=== PATIENT | male | born 1960 | race Caucasian/White ===

== ENCOUNTER → 2017-06-16 | Outpatient (CLI) | payer BC ==
--- NOTE | 2017-06-16 23:14 | MR ---
EXAMINATION TYPE: MR knee LT wo con DATE OF EXAM: 06/16/2017 COMPARISON: NONE HISTORY: Left Knee pain with swelling and locking x4 years TECHNIQUE: Multiplanar, multisequence imaging of the left knee is performed without IV contrast. FINDINGS: There is small knee joint effusion. There is a small linear area of increased signal horizontally in the posterior horn of the medial meniscus. The other menisci appear intact. The anterior and posterio r cruciate ligaments appear intact. There is a 1.5 x 0.5 cm area of increased signal in the subchondr al anterior lateral femoral condyle consistent with a bone bruise and degenerative cyst formation. Th ere is minor spurring of the femoral and tibial condyles. The collateral ligaments are intact. IMPRESSION: No evidence of ligamentous tear. Small horizontal tear of the posterior horn of the medial meniscus. Joint effusion. Small degenerative cyst formation and bone bruise involving the lateral femoral condyle.
== END | disposition home or self-care (01) ==
LOC: RADMRIMAIN 20:02
PROVIDERS: ATTEND Physician Assistant Medical
DX: S83.242A Other tear of medial meniscus, current injury, left knee, initial encounter (principal); S80.02XA Contusion of left knee, initial encounter; M85.662 Other cyst of bone, left lower leg

== ENCOUNTER → 2017-11-30 | Outpatient (CLI) | payer BC ==
--- NOTE | 2017-11-30 15:52 | CONS ---
CONSULTATION DATE OF SERVICE: 11/30/2017 57-year-old gentleman has been evaluated in the [facility] for possible obstructive sleep apnea-hypopnea syndrome. HISTORY OF PRESENT ILLNESS/SLEEP-WAKE EVALUATION: Patient usual sleep schedule on working days from around 9 or 10 p.m. until 3:30 a.m., on weekend until 6 or 7 or 7:30 a.m. Sometimes he has problem with falling asleep, has TV set in bedroom. He prefers to sleep on the side position. According to his he snores. [place] Sleepiness Scale is 4. PAST MEDICAL HISTORY: Positive for hypertension, acid reflux, peptic ulcer disease. PAST SURGICAL HISTORY: Surgery for hiatal hernia. MEDICATIONS: Prilosec, Cozaar, vitamins. SOCIAL HISTORY: Negative for smoking. Alcohol consumption rarely. FAMILY HISTORY: Hypertension, heart problems, arthritis, emphysema, cancer, acid reflux, ulcers, diabetes. REVIEW OF SYSTEMS: Sometimes tiredness during the day. PHYSICAL EXAM: GENERAL gentleman without distress. VITAL SIGNS BP 138/99, HR 90, RR 16, height 5 feet 3-1/4 inches, weight 164.8, BMI 28.8, temperature 97.9, oxygen saturation on room air 95%. HEENT PERRLA, EOMI, evaluation of oropharynx showed low position of soft palate. Restriction of nasal breathing, possibly nasal septum deviation. NECK Supple, no JVD. Thyroid is not palpable. LUNGS Clear to percussion and to auscultation. Good air exchange. No wheezing or rhonchi. HEART S1, S2 regular. No murmurs, gallops, or rubs. ABDOMEN Slightly obese. Soft and nontender. Bowel sounds are present. No organomegaly appreciated. EXTREMITIES No clubbing or cyanosis. 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 Cranial nerves 2 to 7 intact. There is no fasciculation or atrophy. noted. No focal deficits observed. IMPRESSION: 1. Snoring, low position of soft palate, restriction of nasal breathing, obstructive sleep apnea-hypopnea syndrome. 2. Hypertension. 3. Acid reflux. 4. Overweight. 5. Status post treatment of hiatal hernia. 6. History of peptic ulcer disease. 7. Restriction of nasal breathing, possible nasal septum deviation. PLAN: 1. Home sleep apnea test for evaluation of patient's breathing during the sleep. 2. Losing weight. 3. Following plan after reviewing results to home sleep test. 4. No driving if feeling sleepiness. 5. Sleep hygiene with regular time bed for at least 8 hours. Thank you very much for referring the patient for consultation. Sincerely, Epifanio Herrera MD, PhD, FAASM Diplomat of [place] [employer] [place] [employer]rick [employer] [facility] [place] MMODL / MARCUSN: [id number] /
== END | disposition home or self-care (01) ==
LOC: SLEEP 13:53
PROVIDERS: ATTEND Internal Medicine
DX: G47.33 Obstructive sleep apnea (adult) (pediatric) (principal); I10 Essential (primary) hypertension; K21.9 Gastro-esophageal reflux disease without esophagitis; E66.3 Overweight; M27.8 Other specified diseases of jaws; R06.89 Other abnormalities of breathing; Z87.11 Personal history of peptic ulcer disease; Z98.890 Other specified postprocedural states; Z79.899 Other long term (current) drug therapy; Z68.28 Body mass index [BMI] 28.0-28.9, adult
CPT/HCPCS: 99211

== ENCOUNTER → 2019-05-28 | Day surgery (SDC) | payer BC ==
[2019-05-24 18:30] VITALS: BMI 27.4
[~2019-05-28] MED LIST: ALPRAZolam 0.25 MG TAB PO PRN; ALPRAZolam 0.5 MG TAB PO PRN; ASPIRIN 325 MG TAB PO STA; ATORVASTATIN 80 MG TAB PO STA; DIGOXIN 250 MCG TAB PO SCH; IOPAMIDOL-370 125ML BTL INJ ONE; LIDOCAINE 1% INJ 10MG/ML (20 ML MDV) SQ ONE; MIDAZOLAM 2 MG/2 ML VIAL IV ONE; NITROGLYCERIN SL TABS 0.4 MG TAB SUBLINGUAL PRN; RX INFO: IV CONTRAST WAS GIVEN 1 EACH MISC MISCELLANE PRN; SODIUM CHLORIDE 0.9% 1,000 ML IV SCH; SODIUM CHLORIDE 0.9% 1,000 ML in EMPTY BAG 1 BAG IV ONE; SPIRONOLACTONE 25 MG TAB PO SCH; fentaNYL (PF) 50 MCG/ML 2 ML AMP IV ONE; fentaNYL (PF) 50 MCG/ML 2 ML AMP ONE
[2019-05-28 07:00] VITALS: RESP 18; TEMP 97.8
[2019-05-28 07:03] LABS: Basophils # (A) 0.1 k/uL (0-0.2); Basophils % (A) 1 %; Eosinophils # (A) 0.2 k/uL (0-0.7); Eosinophils % (A) 2 %; HGB 15.6 gm/dL (13.0-17.5); Lymphocytes # (A) 2.7 k/uL (1.0-4.8); Lymphocytes % (A) 32 %; MCH 30.2 pg (25.0-35.0); MCHC 33.9 g/dL (31.0-37.0); MCV 89.1 fL (80.0-100.0); Mean Platelet Volume 6.6; Monocytes # (A) 0.4 k/uL (0-1.0); Monocytes % (A) 5 %; Neutrophils % (A) 59 %; Platelet Count 223 k/uL (150-450); RBC 5.16 m/uL (4.30-5.90); WBC 8.4 k/uL (3.8-10.6)
--- NOTE | 2019-05-28 09:21 | CC ---
CARDIAC CATHETERIZATION REPORT INDICATION: Dilated cardiomyopathy with severe LV dysfunction. PROCEDURE NOTE: After obtaining informed consent, left heart catheterization and coronary angiogram were performed via the right femoral artery using standard Bear catheters. The patient tolerated the procedure well without any obvious immediate complications. A femoral angiogram was performed and Angio-Seal was deployed for hemostasis. Patient received moderate conscious sedation. Total sedation time was 19 minutes. FINDINGS: 1. HEMODYNAMICS: Left ventricular end-diastolic pressure is 24 mm. 2. LEFT VENTRICULOGRAM: Left ventriculogram is performed in RUSSELL position shows severely dilated left ventricle with diffuse global hypokinesis and severe LV systolic dysfunction with an ejection fraction of 20%. There is 1 to 2+ mitral regurgitation noted. 3. ANGIOGRAPHIC DATA: Left Main Coronary Artery: Left main coronary artery is a normal-sized vessel and is free of stenosis. Divides into left anterior descending coronary artery and circumflex coronary artery. LAD and its branches, circumflex coronary artery and its branches are free of significant stenosis. Right coronary artery is a large dominant vessel and is free of significant disease. CONCLUSIONS: 1. Dilated cardiomyopathy with severe left ventricular systolic dysfunction. 2. Normal coronary arteries. PLAN: The patient will be treated with AYDEN inhibitors, beta blockers. His blood pressure tolerating, I will add Aldactone. I will see when he first had his initial testing and we need to document that the LV function remains diminished in spite of optimal medical therapy in which event he will need a prophylactic AICD and referral to transplant center referral for evaluation for cardiac transplant. MMODL / IJN: [id number] /
--- NOTE | 2019-05-28 09:27 | LTR ---
May 28, 2019 Re: Giorgi Yan Dear Ceci: I performed cardiac catheterization on Giorgi Yan. A detailed catheterization note is enclosed for your records. In brief, cardiac catheterization revealed normal coronaries and dilated cardiomyopathy with severe LV systolic dysfunction. The patient will be treated with optimal medical therapy and will undergo evaluation for prophylactic AICD and referral for cardiac transplant center. Thank you for giving me the privilege to participate in the care of this pleasant gentleman. Sincerely, MD LEXUS Downs / SHANIQUA: [id number] /
[2019-05-28 12:32] VITALS: PULSE 102
[2019-05-28 13:29] VITALS: BP 116/80
== END ==
LOC: CATHCVL 05:59
PROVIDERS: ATTEND Internal Medicine Cardiovascular Disease
DX: I42.0 Dilated cardiomyopathy (principal); I34.0 Nonrheumatic mitral (valve) insufficiency; R94.31 Abnormal electrocardiogram [ECG] [EKG]; I10 Essential (primary) hypertension; Z79.899 Other long term (current) drug therapy; Z82.49 Family history of ischemic heart disease and other diseases of the circulatory system
CPT/HCPCS: 93458; 85025; C1760; C1894; C1769; J2250; J2001; J3010; Q9967

== ENCOUNTER 2020-06-04 09:51 | Day surgery (SDC) | payer BC ==
[2020-06-02 14:29] VITALS: BMI 27.4
[~2020-06-04 09:51] MED LIST changes: -ALPRAZolam 0.25 MG TAB PO PRN; -ALPRAZolam 0.5 MG TAB PO PRN; -ASPIRIN 325 MG TAB PO STA; -ATORVASTATIN 80 MG TAB PO STA; -DIGOXIN 250 MCG TAB PO SCH; -IOPAMIDOL-370 125ML BTL INJ ONE; +LACTATED RINGERS 1,000 ML IV SCH; -LIDOCAINE 1% INJ 10MG/ML (20 ML MDV) SQ ONE; -MIDAZOLAM 2 MG/2 ML VIAL IV ONE; -NITROGLYCERIN SL TABS 0.4 MG TAB SUBLINGUAL PRN; -RX INFO: IV CONTRAST WAS GIVEN 1 EACH MISC MISCELLANE PRN; -SODIUM CHLORIDE 0.9% 1,000 ML IV SCH; -SODIUM CHLORIDE 0.9% 1,000 ML in EMPTY BAG 1 BAG IV ONE; -SPIRONOLACTONE 25 MG TAB PO SCH; -fentaNYL (PF) 50 MCG/ML 2 ML AMP IV ONE; -fentaNYL (PF) 50 MCG/ML 2 ML AMP ONE
[2020-06-04 10:37] VITALS: TEMP 97.7
--- NOTE | 2020-06-04 10:53 | P.GSHP ---
History of Present Illness H&P Date: 06/04/20 Chief Complaint: GERD, screening colonoscopy This a 60-year-old male who presents today for EGD and colonoscopy. Patient issues GERD. He is also being scheduled for screening colonoscopy today. Past Medical History Past Medical History: GERD/Reflux, GI Bleed, Hearing Disorder / Deafness, Hyperlipidemia, Hypertension, Musculoskeletal Disorder, Osteoarthritis (OA) Additional Past Medical History / Comment(s): Hx neck injury, pain in neck/shoulders/arm. Lt knee pain. Hx bleeding stomach ulcer 2012. Pos "palpitations, Lt ventricle regurgitates." Tinnitus. History of Any Multi-Drug Resistant Organisms: None Reported Past Surgical History: AICD, Heart Catheterization, Hernia Repair Additional Past Surgical History / Comment(s): Hiatal Hernia repair. Colonoscopies, EGD Past Anesthesia/Blood Transfusion Reactions: Motion Sickness Additional Past Anesthesia/Blood Transfusion Reaction / Comment(s): Past motion sickness. Type of Cardiac Device: AICD Device Placement Date:: 09/2019-[facility] Smoking Status: Never smoker - Past Family History Father Family Medical History: Cancer Medications and Allergies Home Medications Medication Instructions Recorded Confirmed Type Acetaminophen [Tylenol Extra 500 - 1,000 mg PO Q6H PRN 05/24/19 06/02/20 History Strength] Mjvicld-Asya-Oybm [id number] 1 - 2 each PO Q6HR PRN 05/24/19 06/02/20 History [Excedrin] Atorvastatin [Lipitor] 10 mg PO DAILY 05/24/19 06/02/20 History Losartan Potassium [Cozaar] 100 mg PO DAILY 05/24/19 06/02/20 History Metoprolol Succinate (ER) [Toprol 25 mg PO DAILY 05/24/19 06/02/20 History Xl] Multivit-Minerals/Folic Acid 150 mcg PO DAILY 05/24/19 06/02/20 History [Centrum Multigummies] Omeprazole [PriLOSEC] 20 mg PO AC-BRKFST 05/24/19 06/02/20 History Allergies Allergy/AdvReac Type Severity Reaction Status Date / Time No Known Allergies Allergy Verified 06/04/20 10:25 Surgical - Exam Vital Signs Temp Pulse Resp BP Pulse Ox 97.7 F 100 17 141/92 97 06/04/20 10:33 06/04/20 10:33 06/04/20 10:33 06/04/20 10:33 06/04/20 10:33 - General well developed, well nourished, no distress - Eyes PERRL - ENT normal pinna - Neck no masses - Respiratory normal expansion - Cardiovascular Rhythm: regular - Abdomen Abdomen: soft, non tender Assessment and Plan Assessment: GERD. We'll perform EGD. We'll also perform screening colonoscopy.
[2020-06-04] MEDS ORDERED: PROPOFOL 10 MG/ML 20 ML VIAL IV ONE (10:54)
[2020-06-04] MEDS ORDERED: fentaNYL (PF) 50 MCG/ML 2 ML AMP ONE (10:54)
[2020-06-04] MEDS ORDERED: MIDAZOLAM 2 MG/2 ML VIAL ONE (10:54)
[2020-06-04] MEDS ORDERED: LIDOCAINE 1% INJ 10MG/ML (20 ML MDV) ONE (10:54)
--- NOTE | 2020-06-04 11:11 | P.OP ---
Date of Procedure: 06/04/20 Preoperative Diagnosis: GERD Screening colonoscopy Postoperative Diagnosis: Antral gastritis Diverticulosis Procedure(s) Performed: EGD Colonoscopy Anesthesia: MAC Surgeon: Eleuterio Carranza Pathology: other (Antrum,) Condition: stable Disposition: PACU Description of Procedure: The patient's placed on the endoscopy table in the lateral position. He received IV sedation. The gastroscope placed oropharynx passed in the esophagus and stomach. Scope some placed through the pylorus. The first and second portion of the duodenum appeared normal. Scope summer back the antrum this was mildly inflamed. A biopsies performed. Scope was unretroflexed and remainder stomach appeared normal. There is no significant hiatal hernia. The GE junction was at 40 cm. The distal esophagus. Normal. The proximal esophagus. Normal. Scope was withdrawn for patient. Next digital rectal exam was performed which revealed no ebonized. The flexible colonoscope was then placed patient anus passed throughout the entire colon. The cecal valve sutures. The cecum, ascending and transverse colon appeared normal. In the descending; there is mild diverticular changes. The scope was then brought back the rectum and this appeared normal. Scope withdrawn for patient.
[2020-06-04 11:55] VITALS: RESP 20
[2020-06-04 12:20] VITALS: BP 102/68; PULSE 77
== END 2020-06-04 12:15 | disposition home or self-care (01) ==
LOC: ORWHC2ENDO 09:51
PROVIDERS: ATTEND Surgery
DX: Z12.11 Encounter for screening for malignant neoplasm of colon (principal); K57.30 Diverticulosis of large intestine without perforation or abscess without bleeding; K29.50 Unspecified chronic gastritis without bleeding; K21.9 Gastro-esophageal reflux disease without esophagitis; H91.90 Unspecified hearing loss, unspecified ear; E78.5 Hyperlipidemia, unspecified; M19.90 Unspecified osteoarthritis, unspecified site; H93.19 Tinnitus, unspecified ear; I11.0 Hypertensive heart disease with heart failure; I50.9 Heart failure, unspecified; Z87.19 Personal history of other diseases of the digestive system; Z87.828 Personal history of other (healed) physical injury and trauma; Z87.11 Personal history of peptic ulcer disease; Z95.810 Presence of automatic (implantable) cardiac defibrillator; Z98.890 Other specified postprocedural states; Z87.898 Personal history of other specified conditions; Z79.899 Other long term (current) drug therapy; Z80.9 Family history of malignant neoplasm, unspecified
CPT/HCPCS: 43239; 88305; G0121; J2250; J2001; J3010; J2704; 45378

== ENCOUNTER 2023-09-25 09:17 | Day surgery (SDC) | payer BC, OTHER ==
[2023-09-22 09:20] VITALS: BMI 27.4
[2023-09-25] MEDS: LACTATED RINGERS 1,000 ML IV SCH (09:53)
[2023-09-25 10:14] VITALS: TEMP 97.3
[2023-09-25] MEDS ORDERED: PROPOFOL 10 MG/ML 20 ML VIAL IV ONE (11:18)
[2023-09-25] MEDS ORDERED: LIDOCAINE 1% INJ 10MG/ML (20 ML MDV) ONE (11:18)
--- NOTE | 2023-09-25 11:26 | P.GSHP ---
History of Present Illness H&P Date: 09/25/23 Chief Complaint: Gerd, family history of colon cancer This is a 63-year-old male with complaints of gerd and family history of colon cancer. Patient is today for EGD. Past Medical History Past Medical History: Heart Failure, GERD/Reflux, GI Bleed, Hearing Disorder / Deafness, Hyperlipidemia, Hypertension, Musculoskeletal Disorder, Osteoarthritis (OA) Additional Past Medical History / Comment(s): Hx neck injury, pain in neck/shoulders/arm, Hx bleeding stomach ulcer 2012, left ventricular hypertrophy History of Any Multi-Drug Resistant Organisms: None Reported Past Surgical History: AICD, Heart Catheterization, Hernia Repair Additional Past Surgical History / Comment(s): Hiatal Hernia repair, Colonoscopies, EGD Past Anesthesia/Blood Transfusion Reactions: Motion Sickness Additional Past Anesthesia/Blood Transfusion Reaction / Comment(s): . Type of Cardiac Device: AICD Device [facility] Date:: 09[facility]2019[facility] Past Psychological History: No Psychological Hx Reported Smoking Status: Never smoker Past Alcohol Use History: None Reported Past Drug Use History: None Reported - Past Family History Father Family Medical History: Cancer Medications and Allergies Home Medications Medication Instructions Recorded Confirmed Type Atorvastatin [Lipitor] 10 mg PO DAILY 05/24/19 09/25/23 History Losartan Potassium [Cozaar] 100 mg PO DAILY 05/24/19 09/25/23 History Omeprazole [PriLOSEC] 20 mg PO BID 05/24/19 09/25/23 History Fish Oil/Dha/Epa [Fish Oil 1,200 1 each PO DAILY 09/22/23 09/25/23 History mg Fish Oil] Metoprolol Succinate (ER) [Toprol 100 mg PO DAILY 09/22/23 09/25/23 History Xl] Montelukast [Singulair] 10 mg PO DAILY 09/22/23 09/25/23 History Multivitamins, Thera [Multivitamin 1 tab PO DAILY 09/22/23 09/25/23 History (formulary)] Allergies Allergy/AdvReac Type Severity Reaction Status Date / Time No Known Allergies Allergy Verified 09/25/23 09:54 Surgical - Exam Vital Signs Temp Pulse Resp BP Pulse Ox 97.3 F L 81 14 140/81 98 09/25/23 09:57 09/25/23 09:57 09/25/23 09:57 09/25/23 09:57 09/25/23 09:57 - General well developed, well nourished, no distress - Eyes PERRL - ENT normal pinna - Neck no masses - Respiratory normal expansion - Cardiovascular Rhythm: regular - Abdomen Abdomen: soft, non tender Assessment and Plan Assessment: History of GERD and family history of colon cancer. Will perform EGD and colonoscopy.
--- NOTE | 2023-09-25 11:38 | P.OP ---
Date of Procedure: 09/25/23 Preoperative Diagnosis: Gerd, family history of colon cancer Postoperative Diagnosis: Mild antral gastritis Diverticulosis Procedure(s) Performed: Colonoscopy Anesthesia: MAC Surgeon: Eleuterio Carranza Pathology: other (Antrum) Condition: stable (Antrum) Disposition: PACU Description of Procedure: Patient was placed on the endoscopy table in the lateral position. He received IV sedation. The gas was placed oropharynx passed to the esophagus of the stomach. Scope was placed through the pylorus. The first and second portion of the duodenum appeared normal. Scope was then repacked the antrum this appeared mildly flayed. A biopsy was performed. The scope was then retroflexed Ese stomach appeared normal. The GE junction was at 40 cm. The distal esophagus appeared normal. The proximal esophagus appeared normal. The scope withdrawn the patient. Next digital rectal exam was performed. This revealed no abnormalities. The flexible colonoscope was then placed patient anus and passed throughout the entire colon. The ileocecal valve was visualized. The cecum, ascending and transverse colon appeared normal. In the descending sigmoid colon there was moderate diverticular changes. The scope was upper back the rectum this appeared normal. Scope withdrawn for the patient.
[2023-09-25 11:46] VITALS: RESP 16
[2023-09-25 12:15] VITALS: BP 153/89; PULSE 69
== END 2023-09-25 12:27 | disposition home or self-care (01) ==
LOC: ORWHC2ENDO 09:17
PROVIDERS: ATTEND Surgery
DX: Z12.11 Encounter for screening for malignant neoplasm of colon (principal); K29.50 Unspecified chronic gastritis without bleeding; K21.9 Gastro-esophageal reflux disease without esophagitis; K57.30 Diverticulosis of large intestine without perforation or abscess without bleeding; I11.0 Hypertensive heart disease with heart failure; I50.9 Heart failure, unspecified; E78.5 Hyperlipidemia, unspecified; M19.90 Unspecified osteoarthritis, unspecified site; Z82.49 Family history of ischemic heart disease and other diseases of the circulatory system; Z80.0 Family history of malignant neoplasm of digestive organs; Z95.810 Presence of automatic (implantable) cardiac defibrillator; Z79.899 Other long term (current) drug therapy
CPT/HCPCS: 88305; 45378; 43239; J2001; J2704

== ENCOUNTER → 2023-11-16 | Outpatient (CLI) | payer BC, OTHER ==
--- NOTE | 2023-11-16 10:55 | CT ---
EXAMINATION TYPE: CT abdomen wo/w con DATE OF EXAM: 11/16/2023 COMPARISON: None HISTORY: umbilical hernia CT DLP: 1314 mGycm Automated exposure control for dose reduction was used. TECHNIQUE: Helical acquisition of images was performed from the lung bases through the top of iliac crest to include entire abdomen. CONTRAST: Performed with Oral Contrast and with IV Contrast, patient injected with 100 mL of Isovue 300. FINDINGS: The visualized lung bases are clear. There is a small hiatal hernia. There are postsurgical changes a t the GE junction. On the precontrast images there are no renal calculi. There is a suggestion of mild sludge in the gal lbladder but the gallbladder is not distended and there is no pericholecystic fluid or gallbladder wa ll thickening. There is no biliary ductal dilatation. There is no solid focal mass or organomegaly involving the liver, pancreas, spleen or adrenal glands. There is no solid renal mass or hydronephrosis. The caliber of the abdominal aorta is normal. Visualized osseous structures and soft tissues are intact. There is no umbilical hernia. The bowel loops are normal in caliber and there is no dilatation or obstruction. No inflammatory mathur ges identified in the bowel wall or mesentery. There is no free intraperitoneal air or fluid. IMPRESSION: 1. No umbilical hernia. 2. Postoperative changes in GE junction with a persistent small hiatal hernia. 3. Possible mild sludge in the gallbladder. 4. No acute changes within the abdomen.
== END | disposition home or self-care (01) ==
LOC: RADCTMAIN 09:44
PROVIDERS: ATTEND Family Medicine
DX: K44.9 Diaphragmatic hernia without obstruction or gangrene (principal); K42.9 Umbilical hernia without obstruction or gangrene
CPT/HCPCS: 74170; Q9967

== ENCOUNTER 2024-05-14 06:51 | Day surgery (SDC) | payer BC, OTHER ==
[~2024-05-14 06:51] MED LIST changes: -LACTATED RINGERS 1,000 ML IV SCH; +SCOPOLAMINE 1 MG/72 HR PATCH TRANSDERM ONE
[2024-05-14 07:39] LABS: Basophils # (A) 0.1 k/uL (0-0.2); Basophils % (A) 1 %; Eosinophils # (A) 0.1 k/uL (0-0.7); Eosinophils % (A) 2 %; HCT 47.9 % (39.0-53.0); HGB 16.4 gm/dL (13.0-17.5); Lymphocytes # (A) 2.5 k/uL (1.0-4.8); Lymphocytes % (A) 26 %; MCH 30.7 pg (25.0-35.0); MCHC 34.2 g/dL (31.0-37.0); MCV 89.7 fL (80.0-100.0); Mean Platelet Volume 7.8; Monocytes # (A) 0.7 k/uL (0-1.0); Monocytes % (A) 7 %; Neutrophils # (A) 6.2 k/uL (1.3-7.7); Neutrophils % (A) 64 %; Platelet Count 204 k/uL (150-450); RBC 5.34 m/uL (4.30-5.90); RDW 12.3 % (11.5-15.5); WBC 9.8 k/uL (3.8-10.6)
[2024-05-14] MEDS: ACETAMINOPHEN TAB 500 MG TAB PO PRN (07:40)
[2024-05-14] MEDS: ONDANSETRON 4 MG/2 ML VIAL IVP ONE (07:40)
[2024-05-14] MEDS: DEXAMETHASONE SOD PHOSPHATE 4 MG/ML 1 ML VIAL IV ONE (07:40)
[2024-05-14] MEDS: LACTATED RINGERS 1,000 ML IV SCH (07:40)
[2024-05-14] MEDS: HEPARIN SODIUM,PORCINE 5,000 UNIT/ML 1 ML VIAL SQ PRN (07:45)
[2024-05-14] MEDS: IV FLUID CONTINUATION 1,000 ML IV ONE (07:55)
[2024-05-14] MEDS ORDERED: fentaNYL (PF) 50 MCG/ML 2 ML AMP ONE (08:12)
[2024-05-14] MEDS ORDERED: GLYCOPYRROLATE 0.2 MG/ML 2 ML VIAL ONE (08:12)
[2024-05-14] MEDS ORDERED: NEOSTIGMINE 1 MG/ML 10 ML VIAL ONE (08:12)
[2024-05-14] MEDS ORDERED: ROCURONIUM 10 MG/ML (5 ML VIAL) IV ONE (08:12)
[2024-05-14] MEDS ORDERED: PHENYLEPHRINE-0.9% NACL SYG 1,000 MCG/10 ML SYRINGE ONE (08:12)
[2024-05-14] MEDS ORDERED: KETOROLAC 15 MG/ML 1 ML VIAL ONE (08:12)
[2024-05-14] MEDS ORDERED: ATROPINE SULFATE 0.1 MG/ML 10ML SYRINGE ONE (08:12)
[2024-05-14] MEDS ORDERED: ETOMIDATE 2 MG/ML 10 ML VIAL ONE (08:12)
[2024-05-14] MEDS ORDERED: SUCCINYLCHOLINE CHLORIDE 200 MG/10 ML VIAL IV ONE (08:12)
[2024-05-14] MEDS ORDERED: LIDOCAINE 1% INJ 10MG/ML (20 ML MDV) ONE (08:12)
[2024-05-14] MEDS: BUPIVACAINE (PF) 0.25% 30 ML VIAL SQ ONE ×2 (08:15→08:38)
[2024-05-14 08:20] LABS: ALT 33 U/L (4-49); AST 33 U/L (17-59); African American GFR (CKD) >90 (>60 ml/min/1.73 sqM); Albumin 4.3 g/dL (3.5-5.0); Alkaline Phosphatase 98 U/L (38-126); Anion Gap 7 mmol/L; Blood Urea Nitrogen 25 mg/dL (9-20); Calcium 9.1 mg/dL (8.4-10.2); Carbon Dioxide 30 mmol/L (22-30); Chloride 106 mmol/L (98-107); Glucose 98 mg/dL (74-99); Non-African American GFR(CKD) >90 (>60 ml/min/1.73 sqM); Potassium 3.8 mmol/L (3.5-5.1); Sodium 143 mmol/L (137-145); Total Bilirubin 0.9 mg/dL (0.2-1.3)
--- NOTE | 2024-05-14 09:06 | P.OP ---
Date of Procedure: 05/14/24 Preoperative Diagnosis: Cholecystitis Postoperative Diagnosis: Cholecystitis Procedure(s) Performed: Laparoscopic cholecystectomy Anesthesia: JEANNIE Surgeon: Eleuterio Carranza Estimated Blood Loss (ml): 5 Pathology: other (Gallbladder) Condition: stable Disposition: PACU Description of Procedure: The patient was placed on the operating table. The patient received a general endotracheal tube anesthesia. The patients abdomen was prepped and draped in the usual sterile fashion. Through an infraumbilical stab incision, the fascia of the anterior abdominal wall was grasped with a pair of Kochers and then the Veress needle was placed in the peritoneal cavity. Position of the Veress needle was confirmed with positive drop test. The abdomen was then insufflated. After adequate insufflation, the 10 mm trocar was placed in the peritoneal cavity. Following this the laparoscope was placed in the peritoneal cavity. The patient was placed in the head-up, right side up position and then a 5 mm trocar was placed in the right lateral and right subcostal position under direct visualization. A 8 mm trocar was placed in the epigastric position. The gallbladder was grasped in the fundus and infundibulum. Traction on the gallbladder was placed in the lateral and the cephalad positions. The triangle of Calot was visualized.. The cystic duct was bluntly dissected until the union of the cystic duct and common bile duct was seen. A critical view of safety was achieved. The cystic duct was then divided and sealed with the Harmonic scissors. A PDS Endoloop was then placed throughout the cystic duct stump. The cystic artery divided and sealed with the Harmonic scissors. The gallbladder was then removed from the liver bed using Harmonic scissors. The gallbladder was then extracted through the epigastric port site. Operative field was checked for any bleeding spots and Harmonic scissors was used to coagulate the liver bed. The abdomen was irrigated. The trocars were removed. The skin was closed using interrupted 3-0 Vicryl suture. Dermabond dressing were applied. The patient tolerated the procedure well.
[2024-05-14 09:12] VITALS: TEMP 96.8
[2024-05-14] MEDS: MIDAZOLAM 2 MG/2 ML VIAL IV PRN (09:29)
[2024-05-14] MEDS: HYDROmorphone 0.5 MG/0.5 ML SYRINGE IVP PRN (09:41)
[2024-05-14 11:28] VITALS: RESP 14
[2024-05-14 11:39] VITALS: BP 132/79; PULSE 93
== END 2024-05-14 12:50 | disposition home or self-care (01) ==
LOC: OR 06:51
PROVIDERS: ATTEND Surgery
DX: K80.10 Calculus of gallbladder with chronic cholecystitis without obstruction
CPT/HCPCS: 80053; 85025; 88304

== ENCOUNTER → 2024-07-18 | Outpatient (CLI) | payer BC, OTHER ==
--- NOTE | 2024-07-18 19:29 | CT ---
EXAMINATION TYPE: CT cervical spine wo con DATE OF EXAM: 07/18/2024 5:34 PM COMPARISON: None. CLINICAL INDICATION: Male, 64 years old with history of M54.2 NECK PAIN M48.02 C STENOSIS M54.12 RADI CULOP; Neck/Shoulder pain more on left side for several months TECHNIQUE: Axial CT images from the skull base to the inferior aspect of T2 we obtained without intra venous contrast. Coronal and sagittal reformatted images were also reviewed. Contrast used: mL of , (if blank None) Oral contrast used: (if blank None) CT DLP: 357.4 mGycm, Automated exposure control for dose reduction was used. FINDINGS: Fracture: None. Osseous structures: Multilevel degenerative disc disease changes with endplate spurring and disc oste ophyte complex's. Vertebral alignment: Alignment within normal limits. Spinal canal/Neural Foramina: Disc osteophyte complexes at C5-C6 with at least mild spinal canal sten osis. No evidence for significant neural foraminal stenosis. Neck soft tissues: Prevertebral soft tissues are within normal limits. Other: The airway is patent. The lung apices are clear. IMPRESSION: 1. No evidence of cervical spine fracture. 2. Mild multilevel degenerative disc disease. [facility], , 07/18/2024 7:26 PM
== END | disposition home or self-care (01) ==
LOC: RADCTMAIN 17:05
PROVIDERS: ATTEND Neurological Surgery
DX: M50.10 Cervical disc disorder with radiculopathy, unspecified cervical region (principal)
CPT/HCPCS: 72125

== ENCOUNTER → 2024-07-25 | Outpatient (CLI) | payer BC, OTHER ==
--- NOTE | 2024-07-25 15:44 | XR ---
EXAMINATION TYPE: XR cervical spine comp DATE OF EXAM: 07/25/2024 3:37 PM COMPARISON: None CLINICAL INDICATION: Male, 64 years old with history of G45.9 TRANSIENT CEREBRAL ISCHEMIC ATTACK, jamal n TECHNIQUE: The cervical spine was imaged in frontal, lateral, odontoid and bilateral oblique. FINDINGS: The osseous structures show normal alignment without evidence of an acute fracture. There are osteoph ytes noted throughout the cervical spine on the anterior and lateral aspects of the vertebral bodies. The intervertebral disk spaces are narrowed at multiple levels. Pedicles are intact. Soft tissues a re within normal limits. The odontoid appears intact. IMPRESSION: 1. No fracture or dislocation. 2. Mild degenerative disc disease changes of the cervical spine. [facility], Workstation: [facility], 07/25/2024 3:41 PM
== END | disposition home or self-care (01) ==
LOC: RADXRMAIN 15:10
PROVIDERS: ATTEND Neurological Surgery
DX: M50.10 Cervical disc disorder with radiculopathy, unspecified cervical region (principal); Z86.73 Personal history of transient ischemic attack (TIA), and cerebral infarction without residual deficits
CPT/HCPCS: 72050

== ENCOUNTER → 2024-08-30 | Outpatient (CLI) | payer BC, OTHER ==
--- NOTE | 2024-08-30 12:39 | XR ---
EXAMINATION TYPE: XR cervical spine limited DATE OF EXAM: 08/30/2024 12:22 PM COMPARISON: 07/25/2024 CLINICAL INDICATION: Male, 64 years old with history of M54.2 CERVICALGIA, pain TECHNIQUE: 4 view(s) obtained. Flexion extension and neutral lateral views were obtained. AP views ob tained. FINDINGS: Vertebral body alignment is preserved through flexion and extension positioning. No subluxation is ev ident. There is loss of disc height at C5-6. Posterior disc space narrowing is present C4-5 and C6-7. Prever tebral space is normal IMPRESSION: 1. Vertebral body alignment preserved through flexion and extension views. 2. Loss of disc height C5-6. Milder loss of disc height is present C4-5 and C6-7 posteriorly. [facility], , 08/30/2024 12:37 PM
== END | disposition home or self-care (01) ==
LOC: RADXRMAIN 11:57
PROVIDERS: ATTEND Neurological Surgery
DX: M54.2 Cervicalgia (principal); R29.890 Loss of height
CPT/HCPCS: 72040

== ENCOUNTER → 2024-09-04 | Outpatient (CLI) | payer BC, OTHER ==
[2024-09-04 16:52] LABS: Basophils # (A) 0.06 X 10*3/uL (0.00-0.10); Basophils % (A) 0.8 %; Eosinophils % (A) 1.3 %; HCT 49.4 % (39.6-50.0); HGB 16.6 g/dL (13.0-17.0); Lymphocytes % (A) 35.5 %; MCH 29.6 pg (27.0-32.0); MCHC 33.6 g/dL (32.0-37.0); MCV 88.1 FL (80.0-97.0); Mean Platelet Volume 10.4 FL (9.5-12.2); Monocytes # (A) 0.53 X 10*3/uL (0.20-1.00); Monocytes % (A) 6.7 %; NRBC Per 100 WBC 0 X 10*3/uL (0.00-0.01); Neutrophils # (A) 4.37 X 10*3/uL (1.80-7.70); Neutrophils % (A) 55.4 %; Platelet Count 233 X 10*3/uL (140-440); RBC 5.61 X 10*6/uL (4.40-5.60); RDW 11.6 % (11.5-14.5); WBC 7.88 X 10*3/uL (4.50-10.00)
== END | disposition home or self-care (01) ==
LOC: LABPAT 12:04
PROVIDERS: ATTEND Surgery
DX: Z01.818 Encounter for other preprocedural examination (principal); K43.9 Ventral hernia without obstruction or gangrene
CPT/HCPCS: 36415; 85025; 86850; 86870; 86880; 86900; 86901; 93005

== ENCOUNTER 2024-09-10 05:38 | Day surgery (SDC) | payer BC, OTHER ==
[2024-09-10] MEDS: DEXAMETHASONE SOD PHOSPHATE 4 MG/ML 1 ML VIAL IV ONE (06:50)
[2024-09-10] MEDS: ONDANSETRON 4 MG/2 ML VIAL IVP ONE (06:51)
[2024-09-10] MEDS: ACETAMINOPHEN TAB 500 MG TAB PO PRN (06:51)
[2024-09-10] MEDS: LACTATED RINGERS 1,000 ML IV SCH (06:52)
[2024-09-10] MEDS: IV FLUID CONTINUATION 1,000 ML IV ONE ×2 (07:00→09:08)
[2024-09-10] MEDS: MIDAZOLAM 2 MG/2 ML VIAL IVP ONE (07:03)
[2024-09-10] MEDS: fentaNYL (PF) 50 MCG/ML 2 ML AMP IVP ONE (07:03)
[2024-09-10] MEDS: HEPARIN SODIUM,PORCINE 5,000 UNIT/ML 1 ML VIAL SQ PRN (07:29)
[2024-09-10] MEDS ORDERED: ROPIVACAINE 5 MG/ML 30 ML VIAL ONE (07:30)
[2024-09-10] MEDS ORDERED: EPINEPHrine 10 ML SYRINGE (0.1 MG/ML) ONE (07:30)
[2024-09-10] MEDS ORDERED: KETOROLAC 15 MG/ML 1 ML VIAL ONE (07:30)
[2024-09-10] MEDS ORDERED: SUCCINYLCHOLINE CHLORIDE 200 MG/10 ML VIAL IV ONE (07:30)
[2024-09-10] MEDS ORDERED: SUGAMMADEX SODIUM 100 MG/ML SYR IV ONE (07:30)
[2024-09-10] MEDS ORDERED: SODIUM CHLORIDE 0.9% (PF) 10 ML VIAL ONE (07:30)
[2024-09-10] MEDS ORDERED: LIDOCAINE 1% INJ 10MG/ML (20 ML MDV) ONE (07:30)
[2024-09-10] MEDS ORDERED: DEXAMETHASONE SOD PHOSPHATE 4 MG/ML 1 ML VIAL ONE (07:30)
[2024-09-10] MEDS ORDERED: VASOPRESSIN 20 UNIT/ML 1 ML VIAL ONE (07:30)
[2024-09-10] MEDS ORDERED: ePHEDrine 50 MG/ML 1 ML VIAL ONE (07:30)
[2024-09-10] MEDS ORDERED: GLYCOPYRROLATE 0.2 MG/ML 2 ML VIAL ONE (07:30)
[2024-09-10] MEDS ORDERED: KETAMINE HCL IN 0.9 % NACL 50 MG/5 ML SYRINGE ONE (07:30)
[2024-09-10] MEDS ORDERED: fentaNYL (PF) 50 MCG/ML 2 ML AMP ONE (07:30)
[2024-09-10] MEDS ORDERED: ROCURONIUM 10 MG/ML (5 ML VIAL) IV ONE (07:30)
[2024-09-10] MEDS ORDERED: PHENYLEPHRINE 10 MG/ML VIAL ONE (07:30)
[2024-09-10] MEDS ORDERED: ETOMIDATE 2 MG/ML 10 ML VIAL ONE (07:30)
--- NOTE | 2024-09-10 07:34 | P.ANPRN ---
Procedure Note - Anesthesia - Nerve Block Performed Bilateral Erector Spinae Single Time Out Performed: Yes Date of Procedure: 09/10/24 Procedure Start Time: :03 Procedure Stop Time: 07:14 Location of Patient: PreOp Indication: Acute Post-Operative Pain, Requested by Surgeon Sedation Type: Sedate with meaningful contact maintained Preparation: Sterile Prep Position: Prone Needle Types: Pajunk Needle Gauge: 21 Ultrasound used to visualize needle placement: Yes Ultrasound used to observe medication spread: Yes Injectate: 0.5% Ropivacaine (see comment for volume) (20 mL +10 mL of normal saline +4 mg of dexamethasone per side) Blood Aspirated: No Pain Paresthesia on Injection Noted: No Resistance on Injection: Normal Image Stored and Saved: Yes Events: Uneventful and Well Tolerated
[2024-09-10] MEDS: LIDOCAINE 1%-EPI 1:100,000 20 ML VIAL SQ ONE (08:11)
[2024-09-10] MEDS: LACTATED RINGERS 1,000 ML IV ONE (08:55)
[2024-09-10 09:14] VITALS: TEMP 96.9
--- NOTE | 2024-09-10 09:15 | P.OP ---
Date of Procedure: 09/10/24 Preoperative Diagnosis: Ventral hernia Postoperative Diagnosis: Ventral hernia Procedure(s) Performed: Laparoscopic robotic assisted t repair of ventral hernia Transversus abdominis plane block Anesthesia: JEANNIE Surgeon: Eleuterio Carranza Estimated Blood Loss (ml): 5 Pathology: none sent Condition: stable Disposition: PACU Description of Procedure: The patient was placed on the operating table in the supine position. He received general anesthesia. His abdomen was prepped and draped usual fashion. Using a 5 mm optical trocar under direct visualization the peritoneal cavity was entered in the left upper quadrant. The abdomen was then insufflated. The laparoscope was placed back into the perineal cavity. Next a 8 mm robotic trocar was placed in the left lower quadrant and a 12 mm robotic trocar was placed in the left lateral position. The original 5 mm trocar was exchanged for a 8 mm robotic trocar. The patient received a four-quadrant transversus abdominis plane block performed 1% local Xylocaine. The patient's placed in the left side up position. And the patient was docked to the robot. The in ventral al hernia was visualized. Using hook cautery the peritoneum over the incisional hernia was excised. The fascial opening was repaired using 0V LOC suture. Next a piece of 11 cm round ventral light ST mesh was placed into the. Cavity and secured with 2 OV lock suture. The patient was undocked the robot. The needles were retrieved. The fascia of the 12 mm trocar site was closed with 0 Ethibond suture. Skin was closed interrupted 3-0 Monocryl suture. Dermabond dressings was applied. Patient tolerated procedure well and was sent to recovery room stable condition.
[2024-09-10] MEDS: HYDROmorphone 0.5 MG/0.5 ML SYRINGE IVP PRN (09:59)
[2024-09-10 12:13] VITALS: BP 134/90; PULSE 99; RESP 16
== END 2024-09-10 12:24 | disposition home or self-care (01) ==
LOC: OR 05:38
PROVIDERS: ATTEND Surgery
DX: K43.9 Ventral hernia without obstruction or gangrene (principal); G89.18 Other acute postprocedural pain
CPT/HCPCS: 49591; S2900; 64999

== ENCOUNTER → 2025-01-20 | Outpatient (CLI) | payer BC, OTHER ==
[2025-01-20 16:44] LABS: BUN/Creat Ratio 18.56 Ratio (12.00-20.00); Blood Urea Nitrogen 16.7 mg/dL (9.0-27.0); Calcium 9.5 mg/dL (8.7-10.3); Carbon Dioxide 21.4 mmol/L (21.6-31.8); Chloride 104 mmol/L (96-109); Glucose 142 mg/dL (70-110); Potassium 4.6 mmol/L (3.5-5.5); Sodium 140 mmol/L (135-145)
[2025-01-20 17:02] LABS: NT-Pro-B-Type Natriuretic Pept <36 pg/mL (0-125)
== END | disposition home or self-care (01) ==
LOC: LABWHC1 10:19
PROVIDERS: ATTEND Internal Medicine Cardiovascular Disease
DX: I50.22 Chronic systolic (congestive) heart failure (principal)
CPT/HCPCS: 36415; 80048; 83880